=== PATIENT | male | born 1985 | race Two or more races ===

== ENCOUNTER 2024-01-04 02:47 | Emergency (ER) | payer OTHER ==
[~2024-01-04] VITALS: Ht 165.1 cm; Wt 136.1 kg
[2024-01-04] MEDS ORDERED: RINGERS SOLUTION,LACTATED 1,000 ML IV STA (03:28)
[2024-01-04] MEDS ORDERED: HYOSCYAMINE SULFATE 0.125 MG TAB.SUBL SL STA (03:28)
[2024-01-04] MEDS ORDERED: MORPHINE SULFATE 4 MG/ML VIAL IV STA (03:29)
[2024-01-04] MEDS ORDERED: KETOROLAC TROMETHAMINE 30 MG VIAL IV STA (03:30)
[2024-01-04] MEDS ORDERED: HYOSCYAMINE SULFATE 0.125 MG TAB.SUBL ONE (03:42)
[2024-01-04] MEDS ORDERED: KETOROLAC TROMETHAMINE 30 MG VIAL ONE (03:42)
[2024-01-04 04:05] LABS: HEMOGLOBIN 13.8 g/dL (13-16.00); MEAN CELL VOLUME 78.1 fL (80.0-100.00); MEAN CORPUSCULAR HEMOGLOBIN 26.3 pg (27.00-32.0); MEAN CORPUSCULAR HGB CONC 33.7 g/dl (32.0-36.0); PLATELET COUNT 300 K/uL (150-450); RED BLOOD COUNT 5.25 M/uL (4.00-6.00); RED CELL DISTRIBUTION WIDTH 15.9 % (11.5-14.5)
[2024-01-04 05:00] LABS: CALCIUM 9.4 mg/dL (8.5-10.1); CREATININE SERUM 0.93 mg/dL (0.70-1.30); GFR 90.93; POTASSIUM 3.84 mEq/L (3.5-5.1)
== END 2024-01-04 06:13 | disposition home or self-care (01) ==
LOC: ER 02:49
DX: R10.9 Unspecified abdominal pain (principal); Z91.013 Allergy to seafood